=== PATIENT | male | born 1970 | race American Indian/Alaskan Native ===

== ENCOUNTER 2020-06-13 00:47 | Emergency (ER) | payer MEDICARE ==
--- NOTE | 2020-06-13 02:20 | Event Note ---
ED Screening Note ED Screening Note: -Slovenian male of unknown age was witnessed at a gas station acting chaotic and was found to have altered mental status. Police and paramedics were notified prompt emergency department for further evaluation and treatment options. The patient is not quadrant cooperative with the history and the fact that he is mentally altered This initial assessment/diagnostic orders/clinical plan/treatment(s) is/are subject to change based on patients health status, clinical progression and re- assessment by fellow clinical providers in the ED. Further treatment and workup at subsequent clinical providers discretion. Patient/guardian urged not to elope from the ED as their condition may be serious if not clinically assessed and managed. Initial orders include: Labs possible CT
[2020-06-13 02:35] LABS: Basophils # (Auto) 0.1 K/mm3 (0.0-0.1); Basophils % (Auto) 1.1 % (0.0-1.8); Eosinophils # (Auto) 0.2 K/mm3 (0.0-0.4); Eosinophils % (Auto) 1.8 % (0.0-4.3); Hematocrit 38.2 % (35.5-45.6); Hemoglobin 12.8 gm/dl (11.8-15.2); Lymphocytes # (Auto) 2.5 K/mm3 (1.2-5.4); Lymphocytes % (Auto) 28.7 % (13.4-35.0); Mean Corpuscular HGB Conc 34 % (32-34); Mean Corpuscular Volume 87 fl (84-94); Monocytes # (Auto) 0.9 K/mm3 (0.0-0.8); Monocytes % (Auto) 10.1 % (0.0-7.3); Platelet Count 214 K/mm3 (140-440); Red Blood Count 4.41 M/mm3 (3.65-5.03); Red Cell Distribution Width 12.8 % (13.2-15.2)
[2020-06-13 02:44] LABS: INR 0.96 (0.87-1.13)
--- NOTE | 2020-06-13 02:52 | XRay Report ---
XR chest 1V ap INDICATION / CLINICAL INFORMATION: Altered Mental Status. COMPARISON: None available. FINDINGS: SUPPORT DEVICES: None. HEART /PULMONARY VASCULATURE: No significant abnormality. LUNGS / PLEURA: No significant pulmonary or pleural abnormality. No pneumothorax. ADDITIONAL FINDINGS: At least 3 linear radiodensities overlie the left upper quadrant of the abdomen. IMPRESSION: 1. No acute cardiopulmonary disease. 2. Linear radiodensities overlying the left upper quadrant of the abdomen, may be artifactual or may reflect ingested foreign body. Signer Name: Reagan Stanford MD Signed: 06/13/2020 2:47 AM Workstation Name: [id number]
--- NOTE | 2020-06-13 02:53 | Cat Scan Report ---
CT HEAD WITHOUT CONTRAST INDICATION / CLINICAL INFORMATION: Altered Mental Status. TECHNIQUE: All CT scans at this location are performed using CT dose reduction for ALARA by means of automated exposure control. COMPARISON: None available. FINDINGS: BRAIN PARENCHYMA: No acute intracranial hemorrhage. No evidence of recent infarct. No mass effect or midline shift. VENTRICULAR SYSTEM/EXTRA-AXIAL SPACES: Ventricles are normal for age. No extra-axial fluid collection . ORBITS: Normal as visualized. SKELETAL SYSTEM/SOFT TISSUES: Normal bones and soft tissues. PARANASAL SINUSES/MASTOID AIR CELLS: No significant abnormality. ADDITIONAL FINDINGS: None. IMPRESSION: 1. No acute intracranial abnormality. Signer Name: Reagan Stanford MD Signed: 06/13/2020 2:48 AM Workstation Name: [id number]
[2020-06-13 03:03] LABS: Alanine Aminotransferase 29 units/L (7-56); Albumin 4.2 g/dL (3.9-5); BUN/Creatinine Ratio 13; Blood Urea Nitrogen 12 mg/dL (9-20); Calcium 9.3 mg/dL (8.4-10.2); Hemolysis Index 3
--- NOTE | 2020-06-13 04:04 | Emergency Department Report ---
<BERENICE FORBES - Last Filed: 06/13/20 04:00> ED Psych HPI - General Chief Complaint: Altered Mental Status Stated Complaint: AMS Time Seen by Provider: 06/13/20 02:45 Source: EMS Mode of arrival: Stretcher - History of Present Illness Initial Comments: Patient is a unknown aged unknown named -[place] male who appears to be middle-aged was found wandering at a gas station acting bizarrely. The only thing we were able to get from the patient is that he states he is in [facility] and he just left [facility]. Patient does not appear disheveled and does not smell of alcohol. There is no evidence of any trauma. Patient has no ID. - Related Data Allergies Allergy/AdvReac Type Severity Reaction Status Date / Time Unable to Assess Allergy Unverified 06/13/20 02:26 ED Review of Systems Comment: Unobtainable due to pts medical conditions ED Past Medical Hx - Past Medical History Additional medical history: unknown - Surgical History Additional Surgical History: unkuown - Social History Smoking Status: Unknown if ever smoked ED Physical Exam - General Limitations: Altered Mental Status General appearance: alert, in no apparent distress - Head Head exam: Present: atraumatic, normocephalic - Eye Eye exam: Present: normal appearance, PERRL, EOMI - ENT ENT exam: Present: mucous membranes moist - Neck Neck exam: Present: normal inspection - Respiratory Respiratory exam: Present: normal lung sounds bilaterally. Absent: respiratory distress, wheezes, rales - Cardiovascular Cardiovascular Exam: Present: regular rate, normal rhythm, normal heart sounds. Absent: systolic murmur, diastolic murmur, rubs, gallop - GI/Abdominal GI/Abdominal exam: Present: soft, normal bowel sounds. Absent: distended, tenderness, guarding, rebound - Rectal Rectal exam: Present: deferred - Extremities Exam Extremities exam: Present: normal inspection - Back Exam Back exam: Present: normal inspection - Neurological Exam Neurological exam: Present: alert, altered, normal gait. Absent: motor sensory deficit - Psychiatric Psychiatric exam: Present: normal affect, normal mood - Skin Skin exam: Present: warm, dry, intact, normal color. Absent: rash ED Course - Reevaluation(s) Reevaluation #1: 06/13/20 04:06 Patient medically cleared at this time for psychiatric evaluation. ED Medical Decision Making - Lab Data Result diagrams: 06/13/20 02:22 06/13/20 02:22 Lab Results 06/13/20 06/13/20 06/13/20 Range/Units 02:22 02:22 02:22 WBC 8.8 (4.5-11.0) K/mm3 RBC 4.41 (3.65-5.03) M/mm3 Hgb 12.8 (11.8-15.2) gm/dl Hct 38.2 (35.5-45.6) % MCV 87 (84-94) fl MCH 29 (28-32) pg MCHC 34 (32-34) % RDW 12.8 L (13.2-15.2) % Plt Count 214 (140-440) K/mm3 Lymph % (Auto) 28.7 (13.4-35.0) % Mason % (Auto) 10.1 H (0.0-7.3) % Eos % (Auto) 1.8 (0.0-4.3) % Baso % (Auto) 1.1 (0.0-1.8) % Lymph # (Auto) 2.5 (1.2-5.4) K/mm3 Mason # (Auto) 0.9 H (0.0-0.8) K/mm3 Eos # (Auto) 0.2 (0.0-0.4) K/mm3 Baso # (Auto) 0.1 (0.0-0.1) K/mm3 Seg Neutrophils % 58.3 (40.0-70.0) % Seg Neutrophils # 5.1 (1.8-7.7) K/mm3 PT 12.6 (12.2-14.9) Sec. INR 0.96 (0.87-1.13) Sodium 136 L (137-145) mmol/L Potassium 4.1 (3.6-5.0) mmol/L Chloride 101.6 (98-107) mmol/L Carbon Dioxide 26 (22-30) mmol/L Anion Gap 13 mmol/L BUN 12 (9-20) mg/dL Creatinine 0.9 (0.8-1.3) mg/dL Estimated GFR > 60 ml/min BUN/Creatinine Ratio 13 % Glucose 180 H (75-100) mg/dL Lactic Acid (0.7-2.0) mmol/L Calcium 9.3 (8.4-10.2) mg/dL Total Bilirubin 0.20 (0.1-1.2) mg/dL AST 23 (5-40) units/L ALT 29 (7-56) units/L Alkaline Phosphatase 49 (35-129) units/L Total Creatine Kinase 455 H (55-170) units/L Troponin T < 0.010 (0.00-0.029) ng/mL Total Protein 6.8 (6.3-8.2) g/dL Albumin 4.2 (3.9-5) g/dL Albumin/Globulin Ratio 1.6 % Salicylates (2.8-20.0) mg/dL Acetaminophen (10.0-30.0) ug/mL Plasma/Serum Alcohol (0-0.07) % 06/13/20 06/13/20 06/13/20 Range/Units 02:22 02:22 02:22 WBC (4.5-11.0) K/mm3 RBC (3.65-5.03) M/mm3 Hgb (11.8-15.2) gm/dl Hct (35.5-45.6) % MCV (84-94) fl MCH (28-32) pg MCHC (32-34) % RDW (13.2-15.2) % Plt Count (140-440) K/mm3 Lymph % (Auto) (13.4-35.0) % Mason % (Auto) (0.0-7.3) % Eos % (Auto) (0.0-4.3) % Baso % (Auto) (0.0-1.8) % Lymph # (Auto) (1.2-5.4) K/mm3 Mason # (Auto) (0.0-0.8) K/mm3 Eos # (Auto) (0.0-0.4) K/mm3 Baso # (Auto) (0.0-0.1) K/mm3 Seg Neutrophils % (40.0-70.0) % Seg Neutrophils # (1.8-7.7) K/mm3 PT (12.2-14.9) Sec. INR (0.87-1.13) Sodium (137-145) mmol/L Potassium (3.6-5.0) mmol/L Chloride (98-107) mmol/L Carbon Dioxide (22-30) mmol/L Anion Gap mmol/L BUN (9-20) mg/dL Creatinine (0.8-1.3) mg/dL Estimated GFR ml/min BUN/Creatinine Ratio % Glucose (75-100) mg/dL Lactic Acid 1.00 (0.7-2.0) mmol/L Calcium (8.4-10.2) mg/dL Total Bilirubin (0.1-1.2) mg/dL AST (5-40) units/L ALT (7-56) units/L Alkaline Phosphatase (35-129) units/L Total Creatine Kinase (55-170) units/L Troponin T (0.00-0.029) ng/mL Total Protein (6.3-8.2) g/dL Albumin (3.9-5) g/dL Albumin/Globulin Ratio % Salicylates < 0.3 L (2.8-20.0) mg/dL Acetaminophen 5.0 L (10.0-30.0) ug/mL Plasma/Serum Alcohol (0-0.07) % // Range/Units 02:22 WBC (4.5-11.0) K/mm3 RBC (3.65-5.03) M/mm3 Hgb (11.8-15.2) gm/dl Hct (35.5-45.6) % MCV (84-94) fl MCH (28-32) pg MCHC (32-34) % RDW (13.2-15.2) % Plt Count (140-440) K/mm3 Lymph % (Auto) (13.4-35.0) % Mason % (Auto) (0.0-7.3) % Eos % (Auto) (0.0-4.3) % Baso % (Auto) (0.0-1.8) % Lymph # (Auto) (1.2-5.4) K/mm3 Mason # (Auto) (0.0-0.8) K/mm3 Eos # (Auto) (0.0-0.4) K/mm3 Baso # (Auto) (0.0-0.1) K/mm3 Seg Neutrophils % (40.0-70.0) % Seg Neutrophils # (1.8-7.7) K/mm3 PT (12.2-14.9) Sec. INR (0.87-1.13) Sodium (137-145) mmol/L Potassium (3.6-5.0) mmol/L Chloride (98-107) mmol/L Carbon Dioxide (22-30) mmol/L Anion Gap mmol/L BUN (9-20) mg/dL Creatinine (0.8-1.3) mg/dL Estimated GFR ml/min BUN/Creatinine Ratio % Glucose (75-100) mg/dL Lactic Acid (0.7-2.0) mmol/L Calcium (8.4-10.2) mg/dL Total Bilirubin (0.1-1.2) mg/dL AST (5-40) units/L ALT (7-56) units/L Alkaline Phosphatase (35-129) units/L Total Creatine Kinase (55-170) units/L Troponin T (0.00-0.029) ng/mL Total Protein (6.3-8.2) g/dL Albumin (3.9-5) g/dL Albumin/Globulin Ratio % Salicylates (2.8-20.0) mg/dL Acetaminophen (10.0-30.0) ug/mL Plasma/Serum Alcohol < 0.01 (0-0.07) % - EKG Data -: EKG Interpreted by [facility] EKG shows normal: sinus rhythm, axis, intervals, QRS complexes, ST-T waves Rate: normal - EKG Data Interpretation: normal EKG - Radiology Data Radiology results: report reviewed (CT head and chest x-ray within normal limits) ED Disposition Clinical Impression: Mental health problem, Mood disorder, History of traumatic brain injury Disposition: DC-01 TO HOME OR SELFCARE Condition: Stable Instructions: Living With Traumatic Brain Injury, Schizoaffective Disorder Additional Instructions: Follow-up with your doctor or doctor/clinic provided. Follow-up with the mental health resources provided. Return if symptoms worsen as indicated by your discharge instructions. Referrals: MABLE DIANA [Other] - 3-5 Days <LUCY CLEMENTE - Last Filed: 06/13/20 19:06> ED Review of Systems ROS: Stated complaint: AMS Other details as noted in HPI ED Course Vital Signs 06/13/20 06/13/20 06/13/20 02:14 02:43 02:45 Temperature 98.1 F Pulse Rate 90 98 H Respiratory 18 14 14 Rate Blood Pressure 117/67 Blood Pressure 142/73 [Right] O2 Sat by Pulse 95 94 96 Oximetry 06/13/20 10:00 Temperature Pulse Rate 88 Respiratory 18 Rate Blood Pressure Blood Pressure 140/70 [Right] O2 Sat by Pulse 96 Oximetry ED Medical Decision Making - Lab Data Result diagrams: 06/13/20 02:22 06/13/20 02:22 - Medical Decision Making I was informed about 6:50 PM the patient did not want to stay in the department and wanted to leave. Reassessed patient. He is alert to person, place, time, and year. Pt is able to tell me his date of without hesitation. He states he does not live to far from here. He does not appear to be disheveled or homeless. He states he has a roommate. He denies any physical complaints. He denies any homicidal suicidal ideation. He denies any allergy to medications (this was adjusted in the chart since he has had unable to assess at time of my evaluation). During his ED stay patient was did deemed to be a psychiatric candidate and is voluntary and not on a 1013 status. Case management has been on the case with last note on the chart from early this afternoon. Since patient is voluntary and not deemed to be a danger to himself he cannot be held against his will. He appears to be lucid and cooperative. He will be discharged per his request. Mental health resources provided. As per note. Assessment and Plan - Psychiatric problem (1) Mental health problem Current Visit: Yes Status: Acute F48.9 (2) Mood disorder Current Visit: Yes Status: Acute f39 Treatment Plan Patient history of TBI recommend case management for further follow-ups with family MEDICATIONS: Risks, benefits and alternatives of medications discussed with the patient, questions answered and consent obtained from patient. PSYCHOTHERAPY: Supportive psychotherapy provided MEDICAL: Per primary team DELIRIUM PRECAUTIONS: Please re-orient patient frequently, keep lights on during the day, and minimize benzodiazepines and opiates as these medications could worsen patient's confusion. RESOURCE DEVELOPMENT DIRECTOR: DISPOSITION:Do Not Recommend acute inpatient psychiatric hospitalization at this time. Case discussed with Dr. Lazcano who agrees with current disposition. LEGAL STATUS: Voluntary FOLLOW-UP: Will sign off Thank you for the consult. Please contact with any questions and/or concerns. Critical care attestation.: If time is entered above; I have spent that time in minutes in the direct care of this critically ill patient, excluding procedure time. ED Disposition Is pt being admited?: No Does the pt Need Aspirin: No Time of Disposition: 19:04
[2020-06-13 05:15] LABS: Amphetamine Screen,Urine Negative; Benzodiazepines Screen,Urine Negative; Cocaine Screen,Urine Negative; Methadone Screen,Urine Negative; Opiate Screen,Urine Negative
[2020-06-13 05:29] LABS: Bilirubin,Urine NEG (Negative); Blood,Urine NEG (Negative); Color,Urine Yellow (Yellow); Mucus,Urine FEW /HPF; Protein,Urine <15 mg/dL mg/dL (Negative); Urobilinogen,Urine < 2.0 mg/dL (<2.0); WBC,Urine < 1.0 /HPF (0.0-6.0)
[2020-06-13 05:44] LABS: Cannabinoid Screen,Urine Positive
--- NOTE | 2020-06-13 08:41 | Consultation ---
History of Present Illness - Reason for Consult Consult date: 06/13/20 Reason for consult: MHE Requesting physician: BERENICE FORBES - History of Present Psychiatric Illness Per ED Provider: Patient is a unknown aged unknown named -Nigerian male who appears to be middle-aged was found wandering at a gas station acting bizarrely. The only thing we were able to get from the patient is that he states he is in [facility] and he just left [facility]. Patient does not appear disheveled and does not smell of alcohol. There is no evidence of any trauma. Patient has no ID. PSYCH HPI Patient is a 50-year-old single unemployed -Nigerian male with no specified past psychiatric history at this moment based on medical records and self-reported past medical history of traumatic brain injury. Patient was seen and found wandering in a gas station acting bizarre before being brought to the ER for assessment. Patient is states he thinks he is at [employer], reportedly has a history of TBI currently on SSI and has been staying with family but every time he goes on to come back to early send him back out that he needs to seek medical help. Patient reported going to college and has attended multiple schools including [email or web address]. Patient is a thought disorder. PAST PSYCHIATRIC HISTORY Diagnoses: None reported Suicide attempts or Self-harm behavior: None reported Prior psychiatric hospitalizations: None reported Substance Abuse history: None reported Previous psychiatric medications tried: None reported Outpatient treatment: None reported PAST MEDICAL HISTORY: Traumatic brain injury Family Psychiatric History: None reported or documented SOCIAL HISTORY Marital Status: Single Living Arrangements: With family Employment Status: [employer] Access to guns/weapons: None reported Education: Reports some college History of Abuse: None reported Legal History: None reported REVIEW OF SYSTEMS Constitutional: Negative for weight loss ENT: Negative for stridor Respiratory: Negative for cough or hemoptysis All other systems reviewed and are negative MENTAL STATUS EXAMINATION General Appearance and Behavior: Age appropriate, good hygiene, wearing appropriate clothes, good eye contact, cooperative polite with questioning. Cooperation: Participating/engaged Psychomotor Behavior: unremarkable and within normal limits Mood: Good Affect and affective range: congruent with mood Thought Process: Illogical Thought Content: Thought disorder Speech: Normal volume, Regular rate and rhythm, Intellectual Functioning: Average Suicidal Ideation: Denies SI Homicidal Ideation: Denies HI Impulse Control: Unimpaired Insight and Judgment: Normal insight and judgment, Memory: Normal, Attention: Normal, Orientation: Alert, oriented, Diagnoses: Assessment and Plan - Psychiatric problem (1) Mental health problem Current Visit: Yes Status: Acute F48.9 (2) Mood disorder Current Visit: Yes Status: Acute f39 Treatment Plan Patient history of TBI recommend case management for further follow-ups with family MEDICATIONS: Risks, benefits and alternatives of medications discussed with the patient, questions answered and consent obtained from patient. PSYCHOTHERAPY: Supportive psychotherapy provided MEDICAL: Per primary team DELIRIUM PRECAUTIONS: Please re-orient patient frequently, keep lights on during the day, and minimize benzodiazepines and opiates as these medications could worsen patient's confusion. CAR RESTORER: DISPOSITION:Do Not Recommend acute inpatient psychiatric hospitalization at this time. Case discussed with Dr. Lazcano who agrees with current disposition. LEGAL STATUS: Voluntary FOLLOW-UP: Will sign off Thank you for the consult. Please contact with any questions and/or concerns. Medications and Allergies Allergies Allergy/AdvReac Type Severity Reaction Status Date / Time Unable to Assess Allergy Unverified 06/13/20 02:26 Mental Status Exam - Vital signs Last Vital Signs Temp 98.1 F 06/13/20 02:14 Pulse 98 H 06/13/20 02:45 Resp 14 06/13/20 02:45 BP 142/73 06/13/20 02:45 Pulse Ox 96 06/13/20 02:45 Results Result Diagrams: 06/13/20 02:22 06/13/20 02:22 Abnormal lab results 06/13/20 06/13/20 06/13/20 Range/Units 02:22 02:22 02:22 RDW 12.8 L (13.2-15.2) % [place] % (Auto) 10.1 H (0.0-7.3) % [place] # (Auto) 0.9 H (0.0-0.8) K/mm3 Sodium 136 L (137-145) mmol/L Glucose 180 H (75-100) mg/dL Total Creatine Kinase 455 H (55-170) units/L Salicylates < 0.3 L (2.8-20.0) mg/dL Acetaminophen (10.0-30.0) ug/mL 06/13/20 Range/Units 02:22 RDW (13.2-15.2) % [place] % (Auto) (0.0-7.3) % [place] # (Auto) (0.0-0.8) K/mm3 Sodium (137-145) mmol/L Glucose (75-100) mg/dL Total Creatine Kinase (55-170) units/L Salicylates (2.8-20.0) mg/dL Acetaminophen 5.0 L (10.0-30.0) ug/mL All other labs normal. Assessment and Plan - Psychiatric problem (1) Mental health problem Current Visit: Yes Status: Acute (2) Mood disorder Current Visit: Yes Status: Acute
[2020-06-13 17:38] VITALS: BP 140/70
== END 2020-06-13 19:18 | disposition home or self-care (01) ==
LOC: ED 00:47 → EDBD 00:47 → ED 19:18
DX: F39 Unspecified mood [affective] disorder (principal); Z87.820 Personal history of traumatic brain injury
CPT/HCPCS: 36415; 70450; 71045; 80053; 80307; 80320; 81001; 82140; 82550; 84484; 85025; 85610; 93005; G0480